=== PATIENT | male | born 2000 | race African-American/Black ===

== ENCOUNTER 2021-03-12 07:37 | Emergency (ER) | payer OTHER ==
[~2021-03-12] VITALS: Ht 175.3 cm; Wt 78.3 kg
--- NOTE | 2021-03-12 09:15 | REP ---
INDICATION: LARGE LACERATION RIGHT INDEX. COMPARISON: None. TECHNIQUE: Right hand 2nd digit four views FINDINGS: No acute fracture or destructive osseous lesion. There is irregularity and air density seen involving the lateral soft tissues at the level of the proximal phalanx. IMPRESSION: There is no evidence of an acute bony abnormality. Findings involving the soft tissues as described above consistent with the patient's clinical history of laceration <Electronically signed by Gabino Aldridge > 03/12/21 0912
[2021-03-12] MEDS ORDERED: LIDOCAINE 1% MDV 20ML VIAL SC ONE (11:35)
[2021-03-12] MEDS ORDERED: NEOSPORIN OINT 0.9 GM PKT TOP ONE (12:10)
[2021-03-12 12:33] VITALS: BP 132/86
== END 2021-03-12 12:37 | disposition home or self-care (01) ==
LOC: M ED 07:37
DX: S61.210A Laceration without foreign body of right index finger without damage to nail, initial encounter (principal); W26.8XXA Contact with other sharp object(s), not elsewhere classified, initial encounter; Y92.89 Other specified places as the place of occurrence of the external cause; Y99.0 Civilian activity done for income or pay

== ENCOUNTER 2021-03-23 07:49 | Emergency (ER) | payer OTHER ==
[~2021-03-23] VITALS: Ht 177.8 cm; Wt 80.0 kg
[2021-03-23 07:50] VITALS: BP 131/60
== END 2021-03-23 08:20 | disposition home or self-care (01) ==
LOC: M ED 07:49
DX: Z48.02 Encounter for removal of sutures (principal)